=== PATIENT | male | born 1980 ===

== ENCOUNTER 2018-04-02 09:55 | Outpatient (CLI) | payer OTHER, MEDICAID | END 2018-04-02 09:56 | disposition home or self-care (01) | LOC: C.PAT 09:55 | DX: M51.16 Intervertebral disc disorders with radiculopathy, lumbar region (principal) ==

== ENCOUNTER 2018-04-10 07:30 | Inpatient (IN) | payer MEDICAID, OTHER ==
[2018-04-02 10:09] VITALS: BMI 26.6
--- NOTE | 2018-04-24 07:58 | HP ---
HISTORY OF PRESENT ILLNESS: The patient is a 38-year-old gentleman who was injured on a job accident that occurred 03/30/2017. He was struck by large piece of nail that fell 15 feet, struck him on the back. He was taken emergently to local ER where he was evaluated, treated, and released. Since then, he has been suffering with local back pain. The patient varies between 6 up to 9 on a 0 to 10 scale. It is very difficult for him to get up from flexed position. He cannot walk far than two blocks. Th pain radiates across the low back, occasionally to the posterior thigh knee. He has dysesthesias in the same distribution. His treatment included fair amount of physiotherapy. He also had three lumbar epidural steroid injections, each one helped for about a month and then wore off, he is medicating with tramadol. PAST MEDICAL HISTORY: Significant for knee and shoulder injuries from the same accident, otherwise, his past medical history is benign. No ongoing medical problems. PAST SURGICAL HISTORY: No prior surgeries. SOCIAL HISTORY: Does not smoke. No not drink PHYSICAL EXAMINATION: He does demonstrates 5/5 strength throughout. Sensory exam is within normal limits. Reflexes are 1 to 2+. Straight leg raising brings on radicular pain with elevation into his right leg. He has had fair amount of tenderness to palpation in the low lumbar spine, particularly at the lumbosacral junction at the iliac crest level. His range of motion is restricted in extension, markedly with flexion. Coming up from flexed position is markedly difficult. His baseline gait is within normal limits. MRI of the LS-spine demonstrated markedly desiccated collapse and prolapse, this could be L4-L5 level with marked causing fair amount of compression of the exiting L4 nerve root. I also offered the patient the possibility of surgical intervention by discectomy, fixation, and fusion. This was done over three different office visits. At one point, start to go ahead with the knee that was bothering him first, and his pain actually progressed, and he feels that his pain level is now over 9. I went over the nature of the recommendation with him at length including the details of procedure, the rationale behind it, potential risks, complications, realistic chance of success, recovery time, and long-term outlook. I answered all his questions. He fully understood the above and he elected to proceed as offered. He is now being admitted for this procedure. Abhishek García MD
[2018-04-24] MEDS ORDERED: Propofol 10 mg/ml Inj (20 ML) ONE ×3 (08:07→11:08)
[2018-04-24] MEDS ORDERED: Rocuronium 10 mg/ml (5 ml) ONE (08:08)
[2018-04-24] MEDS ORDERED: Succinylcholine Chloride 20 mg/ml Syr (5 ml) IV ONE (08:08)
[2018-04-24] MEDS ORDERED: Bupivacaine Liposomal Inj 20 ml INJ ONE (08:09)
[2018-04-24] MEDS ORDERED: Midazolam 2 MG/2 ML VIAL ONE (08:09)
[2018-04-24] MEDS ORDERED: Bacitracin 50,000 UNIT in Sodium Chloride 0.9% Irrig 1,000 ML IR SCH (08:10)
[2018-04-24] MEDS ORDERED: Propofol 10 mg/ml 1,000 MG/100 ML VIAL ONE (08:10)
[2018-04-24] MEDS ORDERED: Remifentanil 1 mg/3 ml Vial IV ONE ×2 (08:10→08:17)
[2018-04-24] MEDS ORDERED: Absorbable Gelatin Sponge Size 100 ONE (08:30)
[2018-04-24] MEDS ORDERED: Thrombin Topical 20,000 Intl Units Spray Kit TOP ONE (08:31)
[2018-04-24] MEDS ORDERED: Bupivacaine HCl 0.5% PF (10 ml) Inj ONE (08:31)
[2018-04-24] MEDS ORDERED: Lidocaine/Epinephrine 1% 1:100000 10 ML IJ ONE ×2 (08:31→09:16)
[2018-04-24] MEDS ORDERED: ceFAZolin 1 gm in NS 1 GM/100 ML BAG IVPB ONE ×2 (08:39→09:06)
[2018-04-24] MEDS ORDERED: Sodium Chloride 0.9% 20 ML IV ONE ×2 (08:55→09:25)
[2018-04-24] MEDS ORDERED: Neostigmine 1:1000 (1 mg/ml) Inj ONE (11:34)
[2018-04-24] MEDS: HYDROmorphone 0.5 mg/0.5 ml ISec IVP PRN ×4 (12:17→13:17)
[2018-04-24] MEDS: Potassium Ch 20mEq in D5-1/2NS 1,000 ML IV SCH ×2 (16:07→22:16)
--- NOTE | 2018-04-24 16:39 | RAD ---
Date of service: 04/24/2018 PROCEDURE: Intraoperative Fluoroscopy. HISTORY: L4-L5 DISC DEGENERATIVE FINDINGS: Fluoroscopic assistance was provided for posterior laminectomy and fusion. Please refer to the operative report from [facility]. Total fluoroscopic time (continuous mode) utilized during the procedure 36.0 seconds. Total exam DLP: 17.69 (mGy).
[2018-04-24] MEDS: Ondansetron Hcl 2 mg/2.5 ml Oral Sol PO SCH (18:15)
[2018-04-25] MEDS: Ondansetron Hcl 2 mg/2.5 ml Oral Sol PO SCH ×2 (00:50→06:11)
[2018-04-25] MEDS: Potassium Ch 20mEq in D5-1/2NS 1,000 ML IV SCH ×4 (02:25→22:05)
--- NOTE | 2018-04-25 06:10 | OP ---
PROCEDURE DATE: 04/24/2018 PREOPERATIVE DIAGNOSIS: Herniated disk with disk derangement and annular tear, L4-L5. POSTOPERATIVE DIAGNOSIS: Herniated disk with disk derangement and annular tear, L4-L5. OPERATIONS: 1. Posterior lumbar interbody and lateral fusion, L4-L5. 2. Use of intervertebral devices. 3. Use of nonsegmental spinal instrumentation. 4. Use of autograft by means of bone marrow aspiration. SURGEON: Anupam Munroe MD CO-SURGEON: Abhishek García MD ANESTHESIA: General endotracheal tube intubation. DESCRIPTION OF PROCEDURE: The patient was brought to the operating room, and general anesthesia was achieved. Intravenous antibiotics were administered, and spinal cord monitoring leads were placed throughout the patient's body. Real-time monitoring was done by a accounts payable technician in the room. Remote monitoring was done by a physician as well. Sequential compression boots were placed to each of the patient's legs. After the antibiotics were administered, a Chakraborty catheter was inserted. The patient was then gently transferred onto the operating table and placed prone on a Wesley frame, keeping his abdomen free from pressure anteriorly. Care was taken to protect the elbows and knees from pressure points. A sterile drape was used to seal off the patient's peroneal region from the operative field. His back was sterilely prepped and draped. The level of the incision noted under fluoroscopy was infiltrated with lidocaine with epinephrine. An incision was then made sharply in the midline and taken out subcutaneous tissue using sharp and blunt dissection. Hemostasis was achieved using electrocautery. The fascia was divided and tissues stripped back of the spinous processes and lamina out to the level of the L4-L5 joint as well as the L4 and L5 transverse processes on each side. Level was verified under fluoroscopy. Soft tissue attachments were cleared using electrocautery and Soto elevators. At that time, a trocar was placed in the posterior right ilium, and 90 mL of bone marrow aspirate was obtained. This was sterilely passed off to the accounts payable technician who processed the samples through the harvest system and returned the collected mesenchymal stem cells back to the OR table. The stem cells were then used to process through the IC chamber as well as soaked strips and cubes of Conform sponge. Thrombinated Gelfoam powder was used for hemostasis at the donor site. A Leksell rongeur was then used to remove the spinous process and thin down the lamina, and laminectomy was carried out in a [id number] fashion using Kerrison rongeurs. This was first done at the midline and then laterally to each side, widening up to the level of the disk space to be able to safely pass the broach, indicating there would be enough room subsequently for the intervertebral devices. Hemostasis was achieved using thrombinated Gelfoam powder as well as bipolar cautery. A needle was placed on the L4-L5 disk and again fluoroscopy verified that we were at the correct level. The patient's laminar bone was combined with the IC chamber bone and Optium putty to create a bone grafting substrate. Thecal sac was gently retracted and the annulus was incised on the left side at L4-L5. Disk material was removed with a pituitary rongeur and the endplate bonnie up to including a size of 11. Ring and spoon curettes were used to remove any remaining tissue from the endplates. In a similar fashion, we then moved to the right side where the annulus was incised and any remaining disk material removed again with the endplate bonnie from 8 through 11 along with the pituitary rongeur and the ring and spoon curettes. Once the space was thoroughly cleared out, the bone grafting substrate along with the marrow-soaked cubes of Conform were packed into the disk space. A 9 x 11 graft pack cage was then tamped into place and countersunk. We then moved back to the left side and inspected the area for any further disk material, but none was there. We then put the remaining marrow-soaked cubes of Conform along with more bone grafting substrate into the disk space and another 9 x 11 cage pack with the graft was inserted and countersunk. Visually everything appeared to be in good position. Baseline stimulation was done of the nerve roots to confirm that monitoring was indeed functioning and we had correct laterality. A high-speed drill was used decorticate the L4-L5 facet joint on each side as well as the L4 and L5 transverse processes and interlaminar spaces. Under fluoroscopic guidance, the entry point was made for the right L4 screw, and a gearshift tool was used to create a channel through the pedicle. Once the bony integrity was confirmed, a 6 x 40 mm Expedium screw was inserted. The same technique was used on the left side with the drill, gearshift tool, ball-tip probe and another 40 x 6 screw was inserted. Stimulation of the gearshift tool on each side as well as the shank and top of each screw revealed no electrophysiologic abnormalities. We then moved down the L5 level where again under fluoroscopy, the entry point for the left L5 screw was created and the gearshift tool was used to create a channel under fluoroscopic guidance through the pedicle and intervertebral body. Bony integrity was confirmed with a ball-tip probe, and a 45 x 6 screw was inserted. We then moved over to the right side for L5 and again with the drill, gearshift tool, ball-tip probe, a path for the screw was created. Another 6 x 45 mg Expedium screw was inserted. Again, stimulation on each side revealed no electrophysiologic abnormalities. AP fluoroscopic view was taken to confirm that we had good position of the screws as well as on the lateral view. A 40-mm precut lordotic theodore was used to connect the two screws on each side, and caps were applied and appropriately tightened and torqued. The midline was irrigated with antibiotic solution and inspected for any debris. Thrombinated Gelfoam powder was used for hemostasis. A large piece of solid Gelfoam was used to cover the exposed neural elements. A #6 matrix cross-link was then used to connect the two rods to add rotational stability. The remaining strips of marrow-soaked Conform along with the remaining bone graft were packed lateral to the rods to bridge the decorticated transverse processes on each side. Final lateral and AP fluoroscopic views showed excellent position of the intervertebral devices and the hardware. The cross-link was tightened and torqued as well. The wound was then closed in layers with interrupted sutures of 0 Vicryl for the muscle and fascia. The subcutaneous tissue was copiously irrigated with antibiotic solution, closed in layers, and 20 mL of 0.5% Marcaine was injected in the paraspinal tissues along with 20 mL of Exparel which had been diluted with 20 mL of normal saline. This is to help the hopefully with postoperative pain. The subcutaneous tissue was then closed in layers with interrupted sutures of 2-0 Vicryl, and the skin was approximated with a running subcuticular suture of 3-0 Monocryl. Steri-Strips and sterile dressing were applied. The patient was gently transferred back onto his bed in the supine position. He was awakened and extubated. He was taken to recovery room in stable condition, having tolerated the procedure well. He is moving all extremities at time of his transfer. No permanent electrophysiologic abnormalities were noted at the completion of the case. He had an estimated blood loss of 300 mL. He received 600 mL of crystalloid along with 140 mL back from the [facility]. He had a urine output of approximately 100 mL for the procedure. Anupam Munroe MD
--- NOTE | 2018-04-25 06:11 | OP ---
PROCEDURE DATE: 04/24/2018 PREOPERATIVE DIAGNOSIS: L4-L5 disk derangement. POSTOPERATIVE DIAGNOSIS: L4-L5 disk derangement. PROCEDURE: L4-L5 decompression, diskectomy, interbody fusion, segmental pedicle screw fixation, posterolateral fusion with iliac autograft. SURGEON: Abhishek García MD CO-SURGEON: Anupam Munroe MD ANESTHESIA: General endotracheal. ESTIMATED BLOOD LOSS: 300 mL; 140 mL returned via [facility]. COMPLICATIONS: None. JUSTIFICATION: The patient is status post an accident ever since when he has been suffering from severe low back pain, radiating pain. MRI documented significant disk prolapse, collapse, annular tear at the L4-L5 level. The patient failed extensive conservative treatment. He was offered the opportunity to undergo operative intervention by diskectomy, fixation and fusion. The nature of this procedure, the rationale behind it, alternatives, potential risks, complications, realistic chance of success, recovery time and long-term outlook were discussed with him at length through a belt lacer. He fully understood all the above and he elected to proceed as offered. DESCRIPTION OF PROCEDURE: The patient was taken to the operating room, hooked up to neurophysiological monitoring. He was carefully intubated and anesthetized. He was placed on the OR table on a Wesley frame in a prone position. Care was taken to protect his face, eyes, endotracheal tube and all bony prominences. The entire low back was then scrubbed with acetone, scrub painted and draped in the usual sterile manner. Incision localized with lateral fluoroscopy. The incision was made with a 10-blade knife and carried down to the level of the fascia. The fascia was incised. Bovie cautery was then used to strip the paraspinal muscles off the spinous process and lamina of L4 and L5. Confirmatory x-ray was taken. The exposure was widened out laterally bilaterally to expose both transverse processes bilaterally as well as the entire L4-L5 facet. Bleeding was controlled throughout with Bovie cautery and thrombinated powdered Gelfoam. At this point, we performed bone marrow harvestation. A 5-gauge trocar was inserted directly into the right superior posterior iliac crest. Approximately 90 mL of bone marrow was aspirated and this was spun down to obtain bone marrow mesenchymal cells and later used in the fusion. Large retractors were placed back in the spinal wound. The decompression was begun with the use of a Leksell rongeur removing the inferior spinous process of L4, then thinning down the L4 lamina as well as the facets. This bone was saved for later use in the fusion. A wide laminotomy was then performed using various-sized Kerrison rongeurs. The inferior two-thirds of the L4 lamina was removed. Generous medial facetectomy was performed laterally bilaterally. The exiting L4 nerves were bilaterally decompressed with a wide foraminotomy, then the traversing L5 nerve roots were decompressed and traced out heading just below the five pedicles. The laminotomy was made wide enough to perform the interbody fusion procedure. Some of the epidural veins were coagulated with bipolar cautery. The diskectomy was then begun by gently retracting the left L5 nerve root medially. The disk was incised and grossly emptied of disk material with the use of pituitary rongeurs and various curettes, 8 through 11 mm bonnie were used to remove all further disk material annulus to begin the decortication. This was then completed with the use of various-sized and shaped large curettes. The attention was turned back onto the right side, where the identical procedure was performed, after which the disk space was liberally packed with bone grafting material which included chopped up products of decompression, additional marrow impregnated allograft and marrow impregnated bone matrix sponges, after which a 9 x 11 mm trapezoidal carbon fiber fusion cage filled with bone grafting material was tapped into the interspace until it was well-seated and countersunk. This identical procedure and graft was placed back on the left side, after which visual inspection and lateral fluoroscopy confirmed excellent position of both of these cages. At this point, we used a high-speed drill to decorticate the lateral gutters which included the transverse processes, lateral pars and the entire facet. The placement of pedicular screws was done by using contralateral fluoroscopy, both visually and fluoroscopically identifying the pedicular entrance, drilling the cortical bone, passing the gearshift down the barrel of the pedicle into the intervertebral body. We then used a ball-tip probe to sound the passage way to ensure that there was no evidence of breach, and finally we placed the appropriate-sized screw. Additionally, the gearshift and the screws were all stimulated with electrical current while monitoring EMG activity to ensure there was no breach. Using this technique, screws of 40 mm length and 6.0 diameter were placed bilaterally at L4 and 6.0 diameter by 45 length placed bilaterally at L5. No screw elicited any EMG activity less than 15 mA. At the right L4 level, we first had passage way that was a little bit too lateral, which may have accounted for a stimulating less than 20 mA. Both AP and lateral fluoroscopy confirmed superb position of all four of the screws. We then placed the appropriate-sized titanium locking theodore into the two screw head receptacles on each side. Locking nuts were then placed and torque-wrenched tight. We ensure there was no foreign matter in around thecal sac and this was then covered with two layers of Gelfoam. We then placed the appropriate-sized cross connector and its three set points also torque-wrenched tight. Lastly, we placed all remaining bone grafts liberally packing into the lateral gutters bilaterally. Final AP and lateral x-ray confirmed superb position of entire construct. The muscle was reapproximated using 0 Vicryl as was the fascia. The wound was copiously irrigated with antibiotic solution. The subcu was closed in two separate layers with interrupted inverted 2-0 Vicryl. The skin was closed with running 3-0 Monocryl stitch, benzoin and Steri-Strips. Dressing was applied. The patient was turned back onto a stretcher, easily extubated, noted moving all groups of both lower extremities well on his way to the recovery room. All counts were correct. Somatosensory evoked potential remained stable over the procedure, no complications. Abhishek García MD
--- NOTE | 2018-04-25 09:33 | CP.PCM.PN ---
Subjective - Date & Time of Evaluation Date of Evaluation: 04/25/18 Time of Evaluation: 09:32 - Subjective Subjective: pod 1 up walking with PT Good st no numbness adv act Objective - Vital Signs/Intake and Output Vital Signs (last 24 hours): Temp Pulse Resp BP Pulse Ox 98.1 F 84 20 108/70 97 04/25/18 07:07 04/25/18 07:07 04/25/18 07:07 04/25/18 07:07 04/25/18 07:07 Intake and Output: 04/25/18 04/25/18 06:59 18:59 Intake Total 1980 Output Total 1450 Balance 530 - Medications Medications: Current Medications Acetaminophen (Tylenol 325mg Tab) 650 mg PO Q6 PRN PRN Reason: Fever >100.4 F Last Admin: 04/24/18 21:50 Dose: 650 mg Docusate Sodium (Colace) 100 mg PO BID [facility] Last Admin: 04/24/18 18:14 Dose: 100 mg Hydromorphone/Sodium Chloride (Dilaudid [employer] Re[employer] Manager) 6 mg IV Q4H PRN; Protocol PRN Reason: Pain, moderate (4-7) Last Admin: 04/25/18 04:16 Dose: 6 mg Potassium Chloride/Dextrose/Sod Cl (Potassium Chl 20 Meq In D5-1/2ns) 1,000 mls @ 100 mls/hr IV .Q10H [facility] Last Admin: 04/25/18 08:00 Dose: Not Given Influenza Virus Vaccine (Flucelvax Quad 0230-1509 Syr) 60 mcg IM .ONCE ONE Stop: 04/26/18 10:01 Ondansetron HCl (Zofran) 4 mg PO Q6 [facility] Last Admin: 04/25/18 06:11 Dose: 4 mg Pneumococcal Polyvalent Vaccine (Pneumovax 23 Vaccine) 0.5 ml IM .ONCE ONE Stop: 04/26/18 10:01
[2018-04-25] MEDS: oxyCODONE 20 mg ER Tab (oxyCONTIN) PO SCH ×2 (09:58→22:04)
[2018-04-25] MEDS: Oxycodone/Acetaminophen 5/325 mg Tab PO PRN ×2 (12:56→21:09)
[2018-04-26] MEDS: Oxycodone/Acetaminophen 5/325 mg Tab PO PRN ×4 (03:45→19:13)
[2018-04-26] MEDS: Potassium Ch 20mEq in D5-1/2NS 1,000 ML IV SCH ×3 (04:00→21:47)
[2018-04-26 07:35] LABS: ALB/GLOB RATIO 1.3 (1.0-2.1); ALBUMIN 3.7 g/dL (3.5-5.0); ALT/SGPT 36 U/L (21-72); AST/SGOT 73 U/L (17-59); BASO % 0.2 % (0.0-2.0); BLOOD UREA NITROGEN 8 mg/dL (9-20); CALCIUM 8.3 mg/dl (8.6-10.4); EOS % 0.1 % (0.0-4.0); GFR NON-AFRICAN AMERICAN > 60; HEMOGLOBIN 14.1 g/dL (12.0-18.0); LYMPH # 1.1 K/uL (1.0-4.3); LYMPH % 11.2 % (20.0-40.0); MEAN CELL VOLUME 93.2 fL (80.0-94.0); MEAN CORPUSCULAR HEMOGLOBIN 32.4 pg (27.0-31.0); MEAN CORPUSCULAR HGB CONC 34.7 g/dL (33.0-37.0); MONO % 10.1 % (0.0-10.0); NEUT % 78.4 % (50.0-75.0); RBC 4.35 Mil/uL (4.40-5.90); RED CELL DISTRIBUTION WIDTH 13.3 % (11.5-14.5)
[2018-04-26 07:37] LABS: WHITE BLOOD COUNT 10.1 K/uL (4.8-10.8)
[2018-04-26] MEDS ORDERED: Pneumococcal 23-Valent Vaccine IM ONE (10:00)
[2018-04-26] MEDS ORDERED: Influenza Vaccine 60 mcg/0.5 mL SYR (4YR UP) IM ONE (10:00)
[2018-04-26] MEDS: oxyCODONE 20 mg ER Tab (oxyCONTIN) PO SCH (10:42)
--- NOTE | 2018-04-26 12:21 | CP.PCM.PN ---
Subjective - Date & Time of Evaluation Date of Evaluation: 04/26/18 Time of Evaluation: 12:16 - Subjective Subjective: SPINE - POD #2 Pt OOB in chair. Complains of some back pain at surg site. Also no gas/BM yet. He states R leg feels weak, with some numbness in R ant thigh. Voiding well. VSS. Afebrile. Moves both LE's actively. Has sens intact to light touch. Good strength of ant tib/EHL bilat Plan: [employer] insurance company denied surgery and post op care, so plan is to d/c home when cleared by therapy, hopefully tomorrow. Will try Dulcolax s uppository. Objective - Vital Signs/Intake and Output Vital Signs (last 24 hours): Temp Pulse Resp BP Pulse Ox 99.8 F H 92 H 20 107/67 95 04/25/18 23:50 04/25/18 23:50 04/25/18 23:50 04/25/18 23:50 04/25/18 23:50 Intake and Output: 04/26/18 04/26/18 06:59 18:59 Intake Total 2040 Output Total 1300 Balance 740 - Medications Medications: Current Medications Acetaminophen (Tylenol 325mg Tab) 650 mg PO Q6 PRN PRN Reason: Fever >100.4 F Last Admin: 04/24/18 21:50 Dose: 650 mg Docusate Sodium (Colace) 100 mg PO BID [facility] Last Admin: 04/26/18 10:42 Dose: 100 mg Hydromorphone/Sodium Chloride (Dilaudid Senior Underwriter) 6 mg IV Q4H PRN; Protocol PRN Reason: Pain, moderate (4-7) Last Admin: 04/25/18 04:16 Dose: 6 mg Potassium Chloride/Dextrose/Sod Cl (Potassium Chl 20 Meq In D5-1/2ns) 1,000 mls @ 100 mls/hr IV .Q10H [facility] Last Admin: 04/26/18 04:00 Dose: Not Given Ondansetron HCl (Zofran Tab) 4 mg PO Q6 [facility] Last Admin: 04/26/18 06:30 Dose: 4 mg Oxycodone HCl (Oxycontin Extended Release Tab) 20 mg PO Q12 [facility] Last Admin: 04/26/18 10:42 Dose: 20 mg Oxycodone/Acetaminophen (Percocet 5/325 Mg Tab) 1 tab PO Q4H PRN PRN Reason: Pain, Mild (1-3) Stop: 04/28/18 09:39 Last Admin: 04/26/18 08:02 Dose: 1 tab - Labs Labs: 04/26/18 07:11 04/26/18 07:11
[2018-04-27] MEDS: Oxycodone/Acetaminophen 5/325 mg Tab PO PRN ×2 (01:02→21:37)
[2018-04-27] MEDS: oxyCODONE 20 mg ER Tab (oxyCONTIN) PO SCH ×3 (10:11→23:44)
[2018-04-27] MEDS: Potassium Ch 20mEq in D5-1/2NS 1,000 ML IV SCH ×2 (10:12)
--- NOTE | 2018-04-27 12:32 | CP.PCM.PN ---
Subjective - Date & Time of Evaluation Date of Evaluation: 04/27/18 Time of Evaluation: 12:24 - Subjective Subjective: SPINE - POD #3 Pt sitting at side of bed. Complaining of abd discomfort. Had very small BM today. Not seen by PT yet. VSS. Afebrile. Neuro intact. Abd distended but still a little soft. Plan: Await PT today. Try another Dulcolax today. Hopefully improves so able to d/c tomorrow. Objective - Vital Signs/Intake and Output Vital Signs (last 24 hours): Temp Pulse Resp BP Pulse Ox 98 F 89 20 111/60 98 04/27/18 07:00 04/27/18 07:00 04/27/18 07:00 04/27/18 07:00 04/27/18 07:00 Intake and Output: 04/27/18 04/27/18 06:59 18:59 Intake Total 1000 Output Total 800 600 Balance -800 400 - Medications Medications: Current Medications Acetaminophen (Tylenol 325mg Tab) 650 mg PO Q6 PRN PRN Reason: Fever >100.4 F Last Admin: 04/24/18 21:50 Dose: 650 mg Docusate Sodium (Colace) 100 mg PO BID [facility] Last Admin: 04/27/18 10:11 Dose: 100 mg Hydromorphone/Sodium Chloride (Dilaudid Projection Engineer) 6 mg IV Q4H PRN; Protocol PRN Reason: Pain, moderate (4-7) Last Admin: 04/25/18 04:16 Dose: 6 mg Potassium Chloride/Dextrose/Sod Cl (Potassium Chl 20 Meq In D5-1/2ns) 1,000 mls @ 100 mls/hr IV .Q10H [facility] Last Admin: 04/27/18 10:12 Dose: 100 mls/hr Ondansetron HCl (Zofran Tab) 4 mg PO Q6 [facility] Last Admin: 04/27/18 07:00 Dose: 4 mg Oxycodone HCl (Oxycontin Extended Release Tab) 20 mg PO Q12 [facility] Last Admin: 04/27/18 10:11 Dose: 20 mg Oxycodone/Acetaminophen (Percocet 5/325 Mg Tab) 1 tab PO Q4H PRN PRN Reason: Pain, Mild (1-3) Stop: 04/28/18 09:39 Last Admin: 04/27/18 01:02 Dose: 1 tab - Labs Labs: 04/26/18 07:11 04/26/18 07:11
[2018-04-28] MEDS: Oxycodone/Acetaminophen 5/325 mg Tab PO PRN (06:18)
[2018-04-28] MEDS: oxyCODONE 20 mg ER Tab (oxyCONTIN) PO SCH ×2 (09:21→22:59)
--- NOTE | 2018-04-28 10:51 | CP.PCM.PN ---
Subjective - Date & Time of Evaluation Date of Evaluation: 04/28/18 Time of Evaluation: 10:49 - Subjective Subjective: still c/o abd pain, min BM yest ambulating w walker dsg c and d neuro stable P dulcolax suppository, fleet enema if unsuccesful inc ambulation Objective - Vital Signs/Intake and Output Vital Signs (last 24 hours): Temp Pulse Resp BP Pulse Ox 98 F 75 20 110/75 94 L 04/28/18 07:00 04/28/18 07:00 04/28/18 07:00 04/28/18 07:00 04/28/18 07:00 Intake and Output: 04/28/18 04/28/18 06:59 18:59 Output Total 300 Balance -300 - Medications Medications: Current Medications Acetaminophen (Tylenol 325mg Tab) 650 mg PO Q6 PRN PRN Reason: Fever >100.4 F Last Admin: 04/24/18 21:50 Dose: 650 mg Docusate Sodium (Colace) 100 mg PO BID [facility] Last Admin: 04/28/18 09:22 Dose: 100 mg Ondansetron HCl (Zofran Tab) 4 mg PO Q6 [facility] Last Admin: 04/28/18 06:14 Dose: 4 mg Oxycodone HCl (Oxycontin Extended Release Tab) 20 mg PO Q12 [facility] Last Admin: 04/28/18 09:21 Dose: 20 mg - Labs Labs: 04/26/18 07:11 04/26/18 07:11
[2018-04-29] MEDS: oxyCODONE 20 mg ER Tab (oxyCONTIN) PO SCH (10:43)
--- NOTE | 2018-04-29 11:14 | CP.PCM.PN ---
Subjective - Date & Time of Evaluation Date of Evaluation: 04/29/18 Time of Evaluation: 11:13 - Subjective Subjective: SPINE - POD #5 Pt still with GI issues. Amb w RW. Had fleets enema this morning. Afeb. VSS. Pt in bathroom during visit. Plan: d/c when bowels functioning better. Objective - Vital Signs/Intake and Output Vital Signs (last 24 hours): Temp Pulse Resp BP Pulse Ox 98.6 F 74 20 112/68 98 04/29/18 07:00 04/29/18 07:00 04/29/18 07:00 04/29/18 07:00 04/29/18 07:00 Intake and Output: 04/29/18 04/29/18 06:59 18:59 Output Total 500 Balance -500 - Medications Medications: Current Medications Acetaminophen (Tylenol 325mg Tab) 650 mg PO Q6 PRN PRN Reason: Fever >100.4 F Last Admin: 04/29/18 06:02 Dose: 650 mg Docusate Sodium (Colace) 100 mg PO BID [facility] Last Admin: 04/29/18 10:43 Dose: 100 mg Ondansetron HCl (Zofran Tab) 4 mg PO Q6 [facility] Last Admin: 04/29/18 06:04 Dose: 4 mg - Labs Labs: 04/26/18 07:11 04/26/18 07:11
--- NOTE | 2018-04-30 11:56 | CP.PCM.PN ---
Subjective - Date & Time of Evaluation Date of Evaluation: 04/30/18 Time of Evaluation: 11:55 - Subjective Subjective: pain under control good st no dec to pin still not able to have BM will give another fleet enema today Objective - Vital Signs/Intake and Output Vital Signs (last 24 hours): Temp Pulse Resp BP Pulse Ox 98.7 F 75 20 111/71 96 04/30/18 07:00 04/30/18 07:00 04/30/18 07:00 04/30/18 07:00 04/30/18 07:00 Intake and Output: 04/30/18 04/30/18 06:59 18:59 Output Total 500 Balance -500 - Medications Medications: Current Medications Acetaminophen (Tylenol 325mg Tab) 650 mg PO Q6 PRN PRN Reason: Fever >100.4 F Last Admin: 04/29/18 06:02 Dose: 650 mg Docusate Sodium (Colace) 100 mg PO BID [facility] Last Admin: 04/30/18 10:45 Dose: 100 mg Ondansetron HCl (Zofran Tab) 4 mg PO Q6 [facility] Last Admin: 04/30/18 06:24 Dose: 4 mg Tramadol HCl (Ultram) 50 mg PO Q4H PRN PRN Reason: Pain, Mild (1-3) Last Admin: 04/30/18 10:45 Dose: 50 mg - Labs Labs: 04/26/18 07:11 04/26/18 07:11
[2018-05-01 02:20] VITALS: RESP 20; O2SAT 96
[2018-05-01 07:43] VITALS: BP 112/73; PULSE 71; TEMP 98.1
--- NOTE | 2018-05-01 09:08 | CP.PCM.PN ---
Subjective - Date & Time of Evaluation Date of Evaluation: 05/01/18 Time of Evaluation: 09:08 - Subjective Subjective: neuro stable abd soft no abd complaints today eating well will d/c home today Objective - Vital Signs/Intake and Output Vital Signs (last 24 hours): Temp Pulse Resp BP Pulse Ox 98.1 F 71 20 112/73 96 05/01/18 07:05 05/01/18 07:05 05/01/18 07:05 05/01/18 07:05 05/01/18 07:05 Intake and Output: 05/01/18 05/01/18 06:59 18:59 Output Total 1250 Balance -1250 - Medications Medications: Current Medications Acetaminophen (Tylenol 325mg Tab) 650 mg PO Q6 PRN PRN Reason: Fever >100.4 F Last Admin: 04/29/18 06:02 Dose: 650 mg Docusate Sodium (Colace) 100 mg PO BID [facility] Last Admin: 04/30/18 17:44 Dose: 100 mg Ondansetron HCl (Zofran Tab) 4 mg PO Q6 [facility] Last Admin: 05/01/18 06:34 Dose: Not Given Tramadol HCl (Ultram) 50 mg PO Q4H PRN PRN Reason: Pain, Mild (1-3) Last Admin: 05/01/18 06:32 Dose: 50 mg - Labs Labs: 04/26/18 07:11 04/26/18 07:11
[2018-05-01] MEDS ORDERED: Influenza Vaccine 60 mcg/0.5 mL SYR (4YR UP) IM ONE (10:12)
[2018-05-01] MEDS ORDERED: Pneumococcal 23-Valent Vaccine IM ONE (10:12)
== END 2018-05-01 14:58 | disposition home or self-care (01) | DRG 460 ==
LOC: C.9S 04-24 06:26 → C.6T 04-24 13:22
PROVIDERS: ADMIT Neurological Surgery; ATTEND Neurological Surgery
PROC: 0QB20ZZ Excision of Right Pelvic Bone, Open Approach (ICD-10-PCS; 2018-04-24)
PROC: 0SB20ZZ Excision of Lumbar Vertebral Disc, Open Approach (ICD-10-PCS; 2018-04-24)
PROC: 0SG00AJ Fusion of Lumbar Vertebral Joint with Interbody Fusion Device, Posterior Approach, Anterior Column, Open Approach (ICD-10-PCS; principal; 2018-04-24 08:30)
DX: M51.26 Other intervertebral disc displacement, lumbar region (principal); M51.36 Other intervertebral disc degeneration, lumbar region; M53.86 Other specified dorsopathies, lumbar region